=== PATIENT | male | born 1980 | race Caucasian/White ===

== ENCOUNTER 2022-03-12 18:01 | Emergency (ER) | payer OTHER ==
[~2022-03-12] VITALS: Ht 170.2 cm; Wt 68.0 kg
--- NOTE | 2022-03-12 18:21 | NUR ---
[employer] OFFICERS FOR MED CLEARANCE FOR BOOKING,C/O "FEVERISH AND BODY ACHE DEAJH WANTS RAPID COVID,ALSO C/O 5TH DIGIT INJURY,R HAND
--- NOTE | 2022-03-12 18:42 | NUR ---
COVID TEST COLLECTED AND SENT
--- NOTE | 2022-03-12 20:23 | NUR ---
[facility] [place]
[2022-03-12 20:24] VITALS: BP 121/75
== END 2022-03-12 20:25 ==
LOC: ER 18:03
DX: M79.645 Pain in left finger(s) (principal); M79.644 Pain in right finger(s); Z20.822 Contact with and (suspected) exposure to COVID-19; F17.200 Nicotine dependence, unspecified, uncomplicated
CPT/HCPCS: 99284; 87426; 73130 ×2; C9803